=== PATIENT | female | born 1965 | race Caucasian/White ===

== ENCOUNTER 2019-03-20 08:50 | Day surgery (SDC) | payer OTHER ==
[~2019-03-20 08:50] MED LIST: Buffered Lidocaine 1% SYRIN* 1 ML/SYRINGE INTRADERM ONE; Dexamethasone IV* 4 MG/ML 1 ML (4 MG) IV SLOW PU ONE; Famotidine IV* 10 MG/ML 2 ML (20 mg) IV ONE; Lactated Ringers 1000 ML Bag* 1,000 ML IV SCH
[2019-03-20] MEDS ORDERED: Acetaminophen TAB* 325 MG PO PRN (09:18)
[2019-03-20] MEDS ORDERED: fentaNYL* 50 MCG/ML 2 ML VIAL (100 MCG VIAL) IV PRN (09:18)
[2019-03-20] MEDS ORDERED: Ketorolac INJ* 30 MG/ML 1 ML VIAL IV PRN (09:18)
[2019-03-20] MEDS ORDERED: DiMENhydriNATE IV* 50 MG/ML VIAL IV PUSH PRN (09:18)
[2019-03-20] MEDS ORDERED: Naloxone* 0.4 MG/ML 1 ML VIAL IV PRN (09:18)
[2019-03-20] MEDS ORDERED: Dexamethasone IV* 4 MG/ML 1 ML (4 MG) ONE (09:55)
[2019-03-20] MEDS ORDERED: Famotidine IV* 10 MG/ML 2 ML (20 mg) ONE (09:56)
--- NOTE | 2019-03-20 10:07 | HP ---
HISTORY AND PHYSICAL: DATE OF ADMISSION: 03/20/19 [facility] PROVIDER: Dr. Trinidad.* (DICTATED BY ALYSSA OSULLIVAN) HISTORY OF PRESENT ILLNESS: Ms. Dorantes is a 53-year-old female who presents for a history and physical due to carpal tunnel syndrome, both in the right and left wrist. She states that the right wrist is more extensive and she would like to proceed with a right wrist carpal tunnel release. She states that she has pain with driving, drawing, writing and she reports terrible pain that awakens her at night. 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 She has had a nerve conduction study that shows moderate carpal tunnel syndrome bilaterally. PAST MEDICAL HISTORY: 1. GERD. 2. Fibromyalgia. 3. Carpal tunnel syndrome. 4. Dizziness. 5. Herniated disks. 6. Tachycardia. PAST SURGICAL HISTORY: 1. section. 2. Lithotripsy. MEDICATIONS: 1. Meloxicam 50 mg. 2. Hydroxychloroquine sulfate 200 mg. 3. Omeprazole. 4. Loratadine 10 mg. 5. Cyclobenzaprine 5 mg. ALLERGIES: 1. OXYCODONE. 2. LYRICA. 3. GABAPENTIN. SOCIAL HISTORY: The patient lives alone, is unemployed. She denies smoking or illicit drug use. She admits to occasional alcohol use. REVIEW OF SYSTEMS: General: The patient denies any fevers, chills, or night sweats. No known anesthesia problems. HEENT: Denies any headache or lightheadedness or syncopal episodes. Cardiothoracic: Denies any chest pain, heart palpitations. Pulmonary: Denies any shortness of breath with exertion, or chronic cough. GI: Denies any nausea, vomiting, diarrhea, or constipation. : Denies any nocturia, urinary frequency, or urgency. MSK: Denies any chronic or intermittent back pain. Neuro: She does admit to paresthesias of the fingers of both hands. Integument: Denies any abrasions, lesions, rashes, lumps, or open sores. PHYSICAL EXAMINATION GENERAL: The patient is alert and oriented x3. Appropriate mood and affect. Appropriate dress and hygiene. No acute distress. HEENT: Normocephalic, atraumatic. Hearing and vision are grossly intact. PULMONARY: Lungs are clear to auscultation bilaterally with no wheezes, rales, or rhonchi. CARDIO: Regular rate and rhythm. Normal S1 and S2. No murmurs, rubs, or gallops. MSK: Right upper extremity: Inspection of the right hand reveals no erythema or ecchymosis. Skin is warm, dry, and intact. There is appreciable thenar wasting and weakness of the thumb abduction and finger abduction. She has a negative Tinel's of the wrist and elbow. Negative carpal compression test and mildly positive Phalen's test. Sensation is intact throughout the hand, but is decreased slightly. 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 She has full range of motion in the fingers, wrist, and elbow. DIAGNOSTIC STUDIES/LAB DATA: EMG nerve conduction study was reviewed and she is found to have moderate carpal tunnel syndrome bilaterally. IMPRESSION: Bilateral carpal tunnel syndrome, right greater than left, subjectively per the patient. PLAN: 1. To the OR for a right carpal tunnel release to be performed by Dr. Kamila Trinidad. 2. The patient will follow up in 10 to 14 days postop for suture removal and followup. ALYSSA OSULLIVAN [id number]/[facility] #: [id number] MTDShavonne
[2019-03-20] MEDS ORDERED: fentaNYL* 50 MCG/ML 2 ML VIAL (100 MCG VIAL) ONE (11:14)
[2019-03-20] MEDS ORDERED: Lidocaine 2% PF * 5 ML VIAL ONE (11:14)
[2019-03-20] MEDS ORDERED: Propofol* 10 MG/ML 20 ML BTL ONE (11:14)
[2019-03-20] MEDS ORDERED: Midazolam* 1 MG/ML 2 ML VIAL (2 MG) ONE (11:14)
[2019-03-20] MEDS ORDERED: Lidocaine 1% INJ* 10 MG/ML 30 ML SDV ONE (11:28)
[2019-03-20 13:28] VITALS: BP 135/86
--- NOTE | 2019-03-20 21:23 | OP ---
DATE OF OPERATION: 03/20/19 [facility] DATE OF : 65 SURGEON: Kamila Trinidad MD PAMPHLET DISTRIBUTOR: ALYSSA Bryan ANESTHESIA: Local MAC. PRE-OP DIAGNOSIS: Right carpal tunnel syndrome. POST-OP DIAGNOSIS: Right carpal tunnel syndrome. OPERATIVE PROCEDURE: Right carpal tunnel release. INDICATIONS: Mabel is a 53-year-old female, who has numbness and tingling in the median nerve distribution of her right hand. She presents for right carpal tunnel release. ESTIMATED BLOOD LOSS: Zero. TOURNIQUET TIME: Approximately 10 minutes. DESCRIPTION OF PROCEDURE: The patient was brought to the operating room and was given a sedation anesthetic and a local infiltration of 10 cc of 1% plain lidocaine in the palm of her right hand. Skin of her right hand and forearm was prepped and draped in the usual sterile fashion. The hand and forearm were exsanguinated and the tourniquet elevated to 250 mmHg. A longitudinal incision was made on the palm in line with the ring finger. We dissected through the subcutaneous tissue down to the transverse carpal ligament. The ligament was divided sharply with a knife and then more proximally with the scissors. The nerve was dissected free from the surrounding tissue and there was an area of moderate compression at the mid portion of the ligament. The wound was irrigated and the skin edges were reapproximated with 4-0 nylon suture. The wound was dressed with Xeroform, 4x4, Webril, and an Raphael wrap. The patient tolerated the procedure well and was brought to the recovery room in good condition. [id number]/[facility] #: [id number] BERNADETTE
== END 2019-03-20 12:51 | disposition home or self-care (01) ==
LOC: OREAST 08:50
PROVIDERS: ATTEND Orthopaedic Surgery
DX: G56.01 Carpal tunnel syndrome, right upper limb (principal); K21.9 Gastro-esophageal reflux disease without esophagitis; M79.7 Fibromyalgia; R00.0 Tachycardia, unspecified
CPT/HCPCS: J1100; J2250; J2704; J3010